=== PATIENT | female | born 1995 | race Caucasian/White ===

== ENCOUNTER 2023-06-26 23:02 | Emergency (ER) | payer OTHER, SELFPAY ==
[2023-06-26 23:06] VITALS: BP 139/95; PULSE 73; RESP 18; TEMP 36.2; O2SAT 98; BMI 21.3
== END 2023-06-27 00:39 | disposition left against medical advice (07) ==
LOC: HO.ED 06-27 00:37
PROVIDERS: Emergency Provider Emergency Medicine
DX: Z04.2 Encounter for examination and observation following work accident (principal); Z77.21 Contact with and (suspected) exposure to potentially hazardous body fluids; M79.645 Pain in left finger(s)
CPT/HCPCS: 99281